=== PATIENT | male | born 1980 | race Caucasian/White ===

== ENCOUNTER 2022-01-04 21:20 | Observation (INO) | payer OTHER ==
[2022-01-04 23:24] LABS: HEMOGLOBIN 14.2 GM/dL (11.7-16.9); MCHC 34.6 g/dl (32.0-35.9); MEAN CELL VOLUME 89.8 fl (80-96); MEAN PLT VOLUME 9.7 fl (7.5-11.1); PLATELET COUNT 165 10^3/uL (134-434); RBC 4.57 M/mm3 (4.00-5.60); RDW 13.9 % (11.9-15.9); WHITE BLOOD COUNT 7.7 K/mm3 (4.0-10.0)
[2022-01-04 23:24] LABS: EPI CELLS 2 /uL (0-25.1); HYALINE CASTS 0 /uL (0-3.1); URINE APPEARANCE CLEAR; URINE BACTERIA 1 /uL (0-1359); URINE BILIRUBIN NEGATIVE (NEGATIVE); URINE COLOR YELLOW; URINE GLUCOSE (UA) NEGATIVE (NEGATIVE); URINE KETONE 1+ (NEGATIVE); URINE LEUK ESTERASE TRACE (NEGATIVE); URINE NITRITE NEGATIVE (NEGATIVE); URINE PROTEIN NEGATIVE (NEGATIVE); URINE RBC 37 /uL (0-23.9); URINE UROBILINOGEN 0.2 mg/dL (0.2-1.0); URINE WBC 11 /uL (0-25.8)
[2022-01-04 23:30] LABS: PHENCYCLIDINE,URINE NEGATIVE (NEGATIVE); URINE BARBITURATES NEGATIVE (NEGATIVE); URINE BENZODIAZEPINES NEGATIVE (NEGATIVE)
[2022-01-04 23:31] LABS: COCAINE, UR NEGATIVE (NEGATIVE); METHADONE, UR NEGATIVE (NEGATIVE); URINE AMPHETAMINES NEGATIVE (NEGATIVE)
[2022-01-04 23:32] LABS: OPIATES, URI NEGATIVE (NEGATIVE)
[2022-01-04 23:39] LABS: CHLORIDE 106 mmol/L (98-107); SODIUM 140 mmol/L (136-145)
[2022-01-04 23:41] LABS: ALBUMIN 3.8 g/dl (3.4-5.0); ANION GAP 8 MMOL/L (8-16); BLOOD UREA NITROGEN 12.4 mg/dL (7-18); CALCIUM 8.6 mg/dL (8.5-10.1); CO2 26 mmol/L (21-32); GLUCOSE,RANDOM 85 mg/dL (74-106)
[2022-01-04 23:44] LABS: CREATININE 0.8 mg/dL (0.55-1.3); SGOT/AST 32 U/L (15-37); SGPT/ALT 47 U/L (13-61)
[2022-01-04 23:46] LABS: BILIRUBIN,TOTAL 1.2 mg/dL (0.2-1)
[2022-01-04 23:47] LABS: ALK PHOS 76 U/L (45-117)
[2022-01-05] MEDS ORDERED: FOLIC ACID INJECTION - 1 MG, THIAMINE HCL 100 MG, MULTIVIT INJECTION ADULT 10 ML in SOD... IVPB ONE (02:59)
[2022-01-05 06:16] LABS: HEMATOCRIT 40.8 % (35.4-49); HEMOGLOBIN 13.7 GM/dL (11.7-16.9); MCH 30.2 pg (25.7-33.7); MCHC 33.5 g/dl (32.0-35.9); MEAN CELL VOLUME 90.3 fl (80-96); MEAN PLT VOLUME 9.6 fl (7.5-11.1); PLATELET COUNT 155 10^3/uL (134-434); RBC 4.52 M/mm3 (4.00-5.60); RDW 13.5 % (11.9-15.9); WHITE BLOOD COUNT 5.7 K/mm3 (4.0-10.0)
[2022-01-05 06:32] LABS: CALCIUM 8.4 mg/dL (8.5-10.1)
[2022-01-05 06:33] LABS: ALBUMIN 3.2 g/dl (3.4-5.0); BLOOD UREA NITROGEN 12.2 mg/dL (7-18); MAGNESIUM 1.7 mg/dL (1.8-2.4)
[2022-01-05 06:36] LABS: CREATININE 0.8 mg/dL (0.55-1.3); PHOSPHOROUS 3.5 mg/dL (2.5-4.9)
[2022-01-05 06:37] LABS: BILIRUBIN,TOTAL 1.7 mg/dL (0.2-1); TOT PROT 6.4 g/dl (6.4-8.2)
[2022-01-05] MEDS: SODIUM CHLORIDE 1,000 ML IV SCH (11:18)
[2022-01-05] MEDS: THIAMINE HCL 100 MG TABLET (FP) PO SCH (11:32)
[2022-01-05] MEDS: FOLIC ACID 1 MG TABLET (FP) PO SCH (11:32)
[2022-01-05] MEDS: ENOXAPARIN NA (PORCINE) 40 MG/0.4 ML DISP.SYRIN SQ SCH (11:32)
[2022-01-05 13:39] VITALS: BMI 33.5
[2022-01-05] MEDS ORDERED: LORazepam 1 MG TABLET PO PRN (18:19)
[2022-01-06] MEDS: SODIUM CHLORIDE 1,000 ML IV SCH (02:07)
[2022-01-06] MEDS: THIAMINE HCL 100 MG TABLET (FP) PO SCH (10:05)
[2022-01-06] MEDS: ENOXAPARIN NA (PORCINE) 40 MG/0.4 ML DISP.SYRIN SQ SCH (10:05)
[2022-01-06] MEDS: FOLIC ACID 1 MG TABLET (FP) PO SCH (10:05)
[2022-01-06 14:14] VITALS: BP 117/65; PULSE 77; TEMP 97.6
== END 2022-01-06 15:58 | disposition home or self-care (01) ==
LOC: JER 21:20 → JERBED 01-05 01:02 → J8W 01-05 10:22
PROVIDERS: ADMIT Internal Medicine; ATTEND Nurse Practitioner Family
PROC: 3E023GC Introduction of Other Therapeutic Substance into Muscle, Percutaneous Approach (ICD-10-PCS; principal; 2022-01-05)
PROC: 3E033GC Introduction of Other Therapeutic Substance into Peripheral Vein, Percutaneous Approach (ICD-10-PCS; 2022-01-05)
DX: R41.82 Altered mental status, unspecified (principal); Z59.00 Homelessness unspecified; G93.41 Metabolic encephalopathy; Z29.9 Encounter for prophylactic measures, unspecified; E66.9 Obesity, unspecified; Z68.33 Body mass index [BMI] 33.0-33.9, adult; F99 Mental disorder, not otherwise specified; F17.210 Nicotine dependence, cigarettes, uncomplicated
CPT/HCPCS: 36415; 70450-TC; 71045-TC-FY; 80053; 80307; 81003; 82140; 82550; 82553; 82962; 83735; 84100; 84443; 84484; 85027; 93005; 93010; 96361; 96365; 96372; 99285-25; C9803; G0378; U0003; U0005